=== PATIENT | female | born 1980 | race Caucasian/White ===

== ENCOUNTER → 2022-03-05 02:14 | Outpatient (CLI) | payer OTHER, MEDICARE, SELFPAY ==
[2022-03-05 12:23] LABS: SARS-CoV-2 RNA PCR Positive
== END ==
PROVIDERS: PCP Nurse Practitioner Family; Visit Provider Nurse Practitioner Family
DX: U07.1 COVID-19 (principal)
CPT/HCPCS: C9803; U0003; U0005

== ENCOUNTER 2024-09-08 09:54 | Emergency (ER) | payer OTHER, MEDICARE, SELFPAY ==
[2024-09-08 12:14] VITALS: BP 171/76; PULSE 79; RESP 16; TEMP 37; O2SAT 100
--- NOTE | 2024-09-08 13:01 | ED_ITS ---
HPI - Dental/Oral General Chief complaint: Dental/Oral Stated complaint: tooth ache Time Seen by Provider: 09/08/24 12:53 Source: patient and RN notes reviewed Mode of arrival: ambulatory Limitations: no limitations History of Present Illness HPI Narrative: Patient presents today with a 2 day history of left lower dental pain and woke up with her left lower jaw swollen today. States she has had some issues with this tooth last June and was treated by her dentist with azithromycin which did improve her symptoms. She has tried to call her dentist office last week at onset of symptoms but her dentist was not in the office. She has tried some leftover tramadol and Tylenol with mild relief of symptoms. No shortness of breath, trismus, difficulty swallowing, fever. History of thalassemia and has jaundice at baseline. Related Data Home Medications ?Medication ?Instructions ?Recorded ?Confirmed ?Last Taken ?Type deferasirox 360 mg tablet (Jadenu) 360 mg PO .2 tablets daily PRN 12/09/20 09/08/24 Unknown History iron chelation folic acid 1 mg tablet 1 mg PO DAILY 02/11/22 09/08/24 Unknown History Allergies Allergy/AdvReac Type Severity Reaction Status Date / Time deferasirox Allergy Unknown Hives Verified 09/08/24 12:03 Sulfa (Sulfonamide Allergy Unknown Hives Verified 09/08/24 12:03 Antibiotics) Review of Systems Review of Systems: CONSTITUTIONAL: Denies body aches, fever, chills, or sweats. EYES: Denies visual changes, redness, or discharge. ENT: Denies rhinorrhea, congestion, sore throat, or otalgia.+ left lower dental pain and facial swelling CARDIOVASCULAR: Denies chest pain, palpitations, or edema. RESPIRATORY: Denies cough or dyspnea. GASTROINTESTINAL: Denies abdominal pain, nausea, vomiting, or diarrhea. GENITOURINARY: Denies dysuria or hematuria. SKIN: Denies rash, itching, or wounds. MUSCULOSKELETAL: Denies back pain, joint pain, or myalgia. NEUROLOGIC: Denies headache, numbness, tingling, or weakness. PSYCH: Denies depression or anxiety. [facility] Past Medical History Medical History Beta thalassemia Follows with hematology at [facility] - monthly infusions Family History Family History Father Hypertension Family history of elevated blood lipids Social History Social History Smoking status: Never smoker Alcohol intake: never Comments At time of signature, I have reviewed and agree with nursing past medical, surgical, social and family history unless otherwise noted. Please see nursing chart for further information. There is no relevant family history pertinent to the presenting complaint Exam Narrative: GENERAL: Well-appearing, well-nourished, and in no acute distress. Generalized skin jaundice. HEAD: Normocephalic, atraumatic. EYES: EOMI. No redness or drainage. Conjunctivae jaundiced ENT: Mucous membranes pink and moist. Tenderness to tooth number 21 and 22. No obvious periapical abscess. Mild to moderate swelling of the left lower jaw with tenderness. No trismus. No sublingual tenderness or swelling. NECK: Normal AROM. Supple. No lymphadenopathy. CHEST: No respiratory distress. EXTREMITIES: Normal range of motion. No edema. SKIN: Warm, dry, no rash. Capillary refill normal. Normal skin turgor. NEURO: No focal deficits. Alert and oriented x3. Gait steady. PSYCH: Normal affect. No signs of depression or anxiety. Course Course Level of Care: Express Care Visit Vital Signs Vital signs: Vital Signs Temperature 98.6 F 09/08/24 12:14 Pulse Rate 79 09/08/24 12:14 Respiratory Rate 16 09/08/24 12:14 Blood Pressure 171/76 H 09/08/24 12:14 Pulse Oximetry 100 09/08/24 12:14 Temperature 98.6 F 09/08/24 12:14 Pulse Rate 79 09/08/24 12:14 Respiratory Rate 16 09/08/24 12:14 Blood Pressure 171/76 H 09/08/24 12:14 Pulse Oximetry 100 09/08/24 12:14 Reviewed MDM - Dental/Oral MDM Narrative Medical decision making narrative: Patient will be treated with Augmentin for likely abscess. She will call her dentist on Tuesday to schedule a follow-up visit. Anticipatory guidance given. Differential Diagnosis Differential diagnosis: Likely gingival abscess, dental caries, toothache and dental abscess Critical Care Time Critical Care Time Critical Care Time: No Discharge Plan Discharge Clinical Impression: Dental abscess Patient Disposition: Home, Self-Care Condition: Stable Instructions: Antibiotic Form, Dental Abscess (ED) Additional Instructions: Please take the Augmentin as prescribed until gone. Continue Tylenol or your tramadol as needed for pain. Follow-up with your dentist as soon as possible. If you develop any shortness of breath, fever, difficulty swallowing, or increased swelling to the face, please go to the ER immediately for further evaluation and treatment. Your blood pressure was elevated above 120/80 today at Urgent Care. This puts you above the threshold for follow up. Please schedule a followup visit with your personal physician as soon as possible, for further evaluation and treatment. Even blood pressure exceeding 120/80 may indicate pre-hypertension. Patient Language: Turkmen Prescriptions: New amoxicillin-pot clavulanate 875-125 mg tablet 1 tablet PO Q12H 10 Days Qty: 20 0RF No Action folic acid 1 mg tablet 1 mg PO DAILY amoxicillin-pot clavulanate 875-125 mg tablet 1 tablet PO BID Qty: 14 0RF deferasirox [Jadenu] 360 mg tablet 360 mg PO .2 tablets daily PRN (Reason: iron chelation) Rx Instructions: take with water/beverage on empty stomach/w light meal (<7 % fat/<=250 eri); do not take within 1 hr of an aluminum-containing antacid mupirocin 2 % ointment 1 applic topical TID Qty: 22 0RF Follow-up/Referrals: Liseth Bowles NP [Primary Care Provider] - Time of Disposition: 13:05
== END 2024-09-08 13:07 | disposition home or self-care (01) ==
PROVIDERS: Emergency Provider Nurse Practitioner; PCP Nurse Practitioner Family
DX: K04.7 Periapical abscess without sinus (principal); D56.1 Beta thalassemia
CPT/HCPCS: 99213; G0463